=== PATIENT | female | born 1980 | race Two or more races ===

== ENCOUNTER 2022-10-04 18:38 | Emergency (ER) | payer BC, OTHER ==
[~2022-10-04] VITALS: Ht 152.4 cm; Wt 82.0 kg
[2022-10-04 21:26] VITALS: BP 148/74
[2022-10-04] MEDS ORDERED: KETOROLAC TROMETH 60MG/2ML VIAL IM ONE (22:15)
== END 2022-10-04 22:26 | disposition home or self-care (01) ==
LOC: ER 18:38
DX: S09.90XA Unspecified injury of head, initial encounter (principal); M54.2 Cervicalgia; E11.9 Type 2 diabetes mellitus without complications; V49.09XA Driver injured in collision with other motor vehicles in nontraffic accident, initial encounter; Y93.89 Activity, other specified; Y92.89 Other specified places as the place of occurrence of the external cause; Y99.8 Other external cause status
CPT/HCPCS: 70450; 72125; 96372; 99285; J1885